=== PATIENT | male | born 1950 | race Caucasian/White ===

== ENCOUNTER 2020-06-03 08:50 | Emergency (ER) | payer MEDICARE ==
[2020-06-03 09:43] LABS: Bilirubin Small (Negative); Blood, Urine Trace (Negative); Clarity Clear (Clear); Glucose, Urine (Dipstick) 500 mg/dL (Negative); Ketone, Urine > or equal to 80 mg/dL (Negative); Leukocyte Negative (Negative); Nitrite Negative (Negative); Protein, Urine (Dipstick) 30 mg/dL (Neg-Trace); Urobilinogen 0.2 mg/dL (Less than 2); pH, Urine 5.5 (5.0-9.0)
[2020-06-03] MEDS ORDERED: Iopamidol 370 76% 100 ML VIAL ONE (09:45)
[2020-06-03 09:48] LABS: ALT (SGPT) 53 U/L (8-55); AST (SGOT) 22 U/L (5-34); Albumin 4.5 g/dL (3.4-4.8); Alkaline Phosphatase 66 U/L (40-110); Anion Gap 19 mmol/L (10-20); BUN (Urea Nitrogen) 21 mg/dL (8.4-25.7); Bilirubin, Total 0.8 mg/dL (0.2-1.2); Calc. Creatinine Clearance 0 mL/min (70-130); Calcium 9.5 mg/dL (7.8-10.44); Carbon Dioxide 20 mmol/L (23-31); Chloride 103 mmol/L (98-107); Estimated GFR-MDRD 67; Globulin 2.9 g/dL (2.4-3.5); Glucose 257 mg/dL (80-115); Lipase 7 U/L (8-78); Protein, Total 7.4 g/dL (5.8-8.1); Sodium 138 mmol/L (136-145)
[2020-06-03] MEDS ORDERED: Piperacillin/Tazobactam 4.5 GM VIAL ONE (09:50)
[2020-06-03 09:51] LABS: Bacteria/HPF None Seen HPF (None Seen); RBC/HPF 0-3 HPF (0-3); Squamous Epithelial 0-3 HPF (0-3); WBC/HPF 0-3 HPF (0-3)
[2020-06-03] MEDS ORDERED: Sodium Chloride 0.9% 100 ML ONE (09:51)
[2020-06-03 09:52] LABS: Hemoglobin 16.4 g/dL (14.0-18.0); Mean Corpuscular HGB CONC 33.3 g/dL (32.0-36.0); Mean Corpuscular Hemoglobin 30.1 pg (27.0-31.0); Mean Corpuscular Volume 90.4 fL (78.0-98.0); Mean Platelet Volume 6.9 fL (7.4-10.4); Platelet Count 261 thou/uL (130-400); RBC Distribution Width 11.5 % (11.5-14.5); Red Blood Cell (RBC) Count 5.47 mill/uL (4.70-6.10); White Blood Cell (WBC) Count 21.4 thou/uL (4.8-10.8)
[2020-06-03 09:58] LABS: Band 6 % (5-11); Lymphocytes 3 % (21-51); MDiff Complete? YES; Monocytes 4 % (0-10); Neutrophil 86 % (42-75); Platelet Morphology Comment Appears Adequate; Reactive Lymphocytes 1 % (0-10)
--- NOTE | 2020-06-03 17:21 | RAD ---
PORTABLE CHEST: 06/03/20 An AP portable film at 0932 shows a normal sized heart and clear lungs. No infiltrate, effusion, or m ass was seen. Some calcified granulomas are seen in the lungs as well as a few calcified hilar nodes from prior granulomatous exposure. The trachea is midline. IMPRESSION: No acute finding. POS: HOME
--- NOTE | 2020-06-03 18:30 | CT ---
CT ABDOMEN AND PELVIS WITH CONTRAST: 06/03/[address] of the abdomen and pelvis was done for evaluation of pain. the scan was done after IV contr ast and is compared with a 05/15/19 study. The lung bases are clear. Some diffuse fatty infiltration of the liver is indicated. The spleen is no rmal in appearance. The head of the pancreas has some calcification in it suggesting prior chronic pa ncreatitis. There is essentially no body or tail to the pancreas present, nor was it in 2019. The gallbladder is quite large in this patient, measuring over 11 cm in length today. My understandin g, however, is the pain is more left sided than right. I do not see any gallstones in it. The aorta s hows no aneurysm. There is what appears to be a very small exophytic cyst in the middle third of the right kidney that measures about 1.3 cm in size. It is present on the 2019 scan and has not changed i n size over the interval. There is no adrenal mass. There is no distention of bowel to suggest obstruction. There has been a prior partial colectomy. The re are a few loops of small bowel in the right flank whose wall seems mildly thick, predominantly rig ht lower quadrant in location. Again, the patient's symptoms are apparently more left sided. Some di verticulosis is noted without findings of diverticulitis. No free air or free fluid was seen. CT of the pelvis shows prostatic enlargement but no pelvic masses, significant adenopathy, or inflamm atory change. No osseous lesions were seen. There are degenerative changes in the spine. IMPRESSION: 1. Large gallbladder without any obvious stones. Consider ultrasound if this correlates with the patient's symptoms. 2. Some thickening of a few loops of small bowel which are located in the right lower quadrant l aterally. 3. Presumed chronic pancreatitis. Body and tail of the pancreas not present. 4. No findings in the left flank to explain pain. Case discussed with Dr. Astorga at approximately 1030 on 06/03/20. POS: HOME
== END 2020-06-03 11:14 | disposition short-term general hospital (02) ==
LOC: BURERS 08:50
DX: A41.9 Sepsis, unspecified organism (principal); E11.65 Type 2 diabetes mellitus with hyperglycemia; I10 Essential (primary) hypertension; Z79.899 Other long term (current) drug therapy
CPT/HCPCS: 36415; 71045; 74177; 80053; 81003; 81015; 83605; 83690; 84443; 84484; 85025; 87040; 93005; 94760; 96365; J2543; J3490; Q9967

== ENCOUNTER 2020-06-25 08:36 | Outpatient (CLI) | payer MEDICARE ==
--- NOTE | 2020-06-25 13:49 | CT ---
CT ABDOMEN WITHOUT CONTRAST: 06/25/20 COMPARISON: Comparison is made with the prior CT scans of 06/18 and 06/19. The drainage catheter going into the pericholecystic abscess is noted. The size of the abscess is muc h smaller now, measuring about 6 x 3 cm, compared to 11/x6 cm before. There is still some fluid and p ockets of gas in the abscess. Some low density areas are seen in adjacent hepatic tissue, but are les s extensive than they were before. There is probably some mild thickening of the gastric outlet, prob ably reactive due to the adjacent inflammatory process. I would note that there is fluid in the right pericolic gutter of a greater amount than there was on the prior scan. Otherwise, however, there wer e no new changes in the abdomen and no additional areas of concern. No free air was seen in the abdom en. A small amount of atelectasis is seen in the right lower lobe of the lung, not unexpected. The sp nicole, pancreas, kidneys, aorta and adrenal glands showed no acute findings. IMPRESSION: 1. Drainage catheter in good position. 2. Abscess is smaller than before. Today 6 x 3 cm (versus 11 x 6 cm on 06/18). 3. Still some fluid and pockets of gas remaining in the abscess. 4. Moderate amount of free fluid in the right pericolic gutter, more than on the prior study. 5. Small amount of low density in the liver, adjacent to the abscess, but it has improved when c ompared with the prior scan. POS: HOME
== END 2020-06-25 08:37 | disposition home or self-care (01) ==
LOC: BURCT 08:36
PROVIDERS: ATTEND Specialist
DX: Z48.815 Encounter for surgical aftercare following surgery on the digestive system (principal); K81.0 Acute cholecystitis; Z90.49 Acquired absence of other specified parts of digestive tract
CPT/HCPCS: 74150

== ENCOUNTER 2020-07-02 08:17 | Outpatient (CLI) | payer MEDICARE ==
--- NOTE | 2020-07-02 11:07 | CT ---
CT ABDOMEN WITHOUT CONTRAST: DATE: 07/02/2020. FINDINGS: Comparison is made with the 06/25 study. The drainage tube remains in place in the operative bed of the prior cholecystectomy. There has been further reduction of fluid in this location over the last 7 days. The fluid-filled area is now a bi t more confined and measures approximately 4 cm in size. Previously, there was a moderate amount of fluid in the right paracolic gutter. This has been reduce d considerably and now is all but resolved since the prior scan. There are no new findings elsewhere . No new fluid collections, free air, or signs of abscess were seen. IMPRESSION: 1. Further reduction in the abscess in the gallbladder fossa, now with only a small, rounded 4 cm re sidual. Small amounts of gas are seen within this collection. 2. Virtual resolution of fluid seen previously in the right paracolic gutter. POS: HOME
== END 2020-07-02 08:18 | disposition home or self-care (01) ==
LOC: BURCT 08:17
PROVIDERS: ATTEND Specialist
DX: K65.1 Peritoneal abscess (principal); K81.0 Acute cholecystitis
CPT/HCPCS: 74150

== ENCOUNTER 2020-08-18 11:34 | Emergency (ER) | payer MEDICARE ==
[2020-08-18] MEDS ORDERED: methylPREDNISolone Sod Succ/PF 125 MG/2 ML VIAL ONE (12:01)
[2020-08-18] MEDS ORDERED: diphenhydrAMINE 50 MG/ML VIAL ONE (12:04)
[2020-08-18] MEDS ORDERED: Famotidine In NaCl 20 mg/50 ml Premix Bag ONE (12:04)
[2020-08-18 12:07] LABS: #Basophils 0.1 thou/uL (0.0-0.2); #Eosinphils 0.1 thou/uL (0.0-0.7); #Lymphocytes 3.6 thou/uL (1.20-3.40); #Monocytes 0.9 thou/uL (0.11-0.59); #Neutrophils 5.6 thou/uL (1.40-6.50); %Basophils 1.4 % (0.0-1.0); %Eosinophils 0.6 % (0.0-10.0); %Monocytes 8.6 % (0.0-10.0); %Neutrophils 54.5 % (42.0-75.0); Hemoglobin 15.9 g/dL (14.0-18.0); Mean Corpuscular HGB CONC 33.5 g/dL (32.0-36.0); Mean Corpuscular Hemoglobin 29.1 pg (27.0-31.0); Mean Corpuscular Volume 86.8 fL (78.0-98.0); Platelet Count 445 thou/uL (130-400); RBC Distribution Width 12.9 % (11.5-14.5); Red Blood Cell (RBC) Count 5.48 mill/uL (4.70-6.10); White Blood Cell (WBC) Count 10.3 thou/uL (4.8-10.8)
[2020-08-18 12:20] LABS: Anion Gap 18 mmol/L (10-20); BUN (Urea Nitrogen) 11 mg/dL (8.4-25.7); Calc. Creatinine Clearance 0 mL/min (70-130); Calcium 9.5 mg/dL (7.8-10.44); Carbon Dioxide 22 mmol/L (23-31); Chloride 100 mmol/L (98-107); Glucose 267 mg/dL (80-115); Potassium 3.5 mmol/L (3.5-5.1); Sodium 136 mmol/L (136-145)
== END 2020-08-18 13:06 | disposition home or self-care (01) ==
LOC: BURERS 11:34
DX: T78.3XXA Angioneurotic edema, initial encounter (principal); E11.9 Type 2 diabetes mellitus without complications; I10 Essential (primary) hypertension; N40.0 Benign prostatic hyperplasia without lower urinary tract symptoms; Z87.891 Personal history of nicotine dependence; Z79.84 Long term (current) use of oral hypoglycemic drugs; Z79.899 Other long term (current) drug therapy
CPT/HCPCS: 80048; 85025; 94760; 96365; 96375; J1200; J2930

== ENCOUNTER 2020-09-16 11:01 | Emergency (ER) | payer MEDICARE ==
[2020-09-16 11:25] LABS: #Basophils 0.1 thou/uL (0.0-0.2); #Eosinphils 0.1 thou/uL (0.0-0.7); #Lymphocytes 2.1 thou/uL (1.20-3.40); #Monocytes 0.7 thou/uL (0.11-0.59); #Neutrophils 8.3 thou/uL (1.40-6.50); %Eosinophils 0.5 % (0.0-10.0); %Lymphocytes 18.9 % (21.0-51.0); %Monocytes 5.8 % (0.0-10.0); %Neutrophils 73.9 % (42.0-75.0); Hemoglobin 16.2 g/dL (14.0-18.0); Mean Corpuscular HGB CONC 32.7 g/dL (32.0-36.0); Mean Corpuscular Hemoglobin 27.9 pg (27.0-31.0); Mean Corpuscular Volume 85.4 fL (78.0-98.0); Platelet Count 404 thou/uL (130-400); RBC Distribution Width 13.4 % (11.5-14.5); White Blood Cell (WBC) Count 11.3 thou/uL (4.8-10.8)
[2020-09-16 11:45] LABS: ALT (SGPT) 47 U/L (8-55); AST (SGOT) 22 U/L (5-34); Albumin 3.9 g/dL (3.4-4.8); Alkaline Phosphatase 173 U/L (40-110); Anion Gap 19 mmol/L (10-20); BUN (Urea Nitrogen) 16 mg/dL (8.4-25.7); Bilirubin, Total 0.6 mg/dL (0.2-1.2); CK (CPK) 32 U/L (30-200); Calc. Creatinine Clearance 0 mL/min (70-130); Calcium 9.5 mg/dL (7.8-10.44); Carbon Dioxide 21 mmol/L (23-31); Chloride 99 mmol/L (98-107); Globulin 4.6 g/dL (2.4-3.5); Glucose 354 mg/dL (80-115); Potassium 4.1 mmol/L (3.5-5.1); Protein, Total 8.5 g/dL (5.8-8.1); Sodium 135 mmol/L (136-145)
[2020-09-16 11:57] LABS: Bilirubin Small (Negative); Blood, Urine Trace (Negative); Clarity Clear (Clear); Glucose, Urine (Dipstick) 500 mg/dL (Negative); Ketone, Urine 80 mg/dL (Negative); Leukocyte Negative (Negative); Nitrite Negative (Negative); Protein, Urine (Dipstick) 100 mg/dL (Neg-Trace); Specific Gravity, Urine 1.025 (1.005-1.030); Urobilinogen 0.2 mg/dL (Less than 2)
[2020-09-16 12:00] LABS: Bacteria/HPF Rare-Few HPF (None Seen); RBC/HPF 0-3 HPF (0-3); Squamous Epithelial None Seen HPF (0-3); WBC/HPF None Seen HPF (0-3)
[2020-09-16] MEDS ORDERED: Insulin Regular 300 UNITS/3 ML VIAL ONE (12:03)
[2020-09-16] MEDS ORDERED: Ondansetron ODT 4 MG TAB ONE (12:07)
[2020-09-16 13:52] LABS: Anion Gap 15 mmol/L (10-20)
[2020-09-16 14:00] LABS: BUN (Urea Nitrogen) 16 mg/dL (8.4-25.7); Calc. Creatinine Clearance 0 mL/min (70-130); Carbon Dioxide 21 mmol/L (23-31); Chloride 104 mmol/L (98-107); Glucose 259 mg/dL (80-115); Sodium 136 mmol/L (136-145)
--- NOTE | 2020-09-16 17:07 | RAD ---
CHEST TWO VIEWS: 09/16/20 Comparison is made with the prior study of 06/18/20. There has been no substantial interval change. Th e lungs are currently clear. Slight elevation of the right hemidiaphragm is no different than before. The heart size is normal and there is no congestive finding or pleural effusion. IMPRESSION: No acute thoracic findings. POS: HOME
== END 2020-09-16 16:45 | disposition home or self-care (01) ==
LOC: BURERS 11:01
DX: E11.10 Type 2 diabetes mellitus with ketoacidosis without coma (principal); Z79.84 Long term (current) use of oral hypoglycemic drugs
CPT/HCPCS: 36416; 71046; 80053; 81003; 81015; 82550; 83605; 83880; 84484; 85025; 87086; 93005; 94760; 96374; 96376; 36415-59; J1815; Q0162